=== PATIENT | male | born 1985 | race African-American/Black ===

== ENCOUNTER 2021-12-13 16:47 | Emergency (ER) | payer OTHER ==
[~2021-12-13] VITALS: Ht 182.9 cm; Wt 94.0 kg
[2021-12-13 16:53] VITALS: BP 146/104
== END 2021-12-13 18:14 | disposition home or self-care (01) ==
LOC: ER 16:47
DX: R07.89 Other chest pain (principal); B34.9 Viral infection, unspecified; M79.10 Myalgia, unspecified site; I10 Essential (primary) hypertension; Z20.822 Contact with and (suspected) exposure to COVID-19
CPT/HCPCS: 71045; 87426; 93005; 99285

== ENCOUNTER 2022-01-01 14:00 | Emergency (ER) | payer OTHER ==
[~2022-01-01] VITALS: Ht 182.9 cm; Wt 95.4 kg
[2022-01-01] MEDS ORDERED: AMLO5TAB4 MT (15:57)
[2022-01-01] MEDS ORDERED: AMLODIPINE 5MG TABLET PO ONE (16:00)
[2022-01-01 16:19] VITALS: BP 157/100
== END 2022-01-01 16:31 | disposition home or self-care (01) ==
LOC: ER 14:00
DX: R07.2 Precordial pain (principal); R50.9 Fever, unspecified; Z20.822 Contact with and (suspected) exposure to COVID-19; I10 Essential (primary) hypertension; Z91.14 Patient's other noncompliance with medication regimen; Z71.89 Other specified counseling; M79.18 Myalgia, other site; R51.9 Headache, unspecified; R53.83 Other fatigue
CPT/HCPCS: 87426; 93005; 99284